=== PATIENT | female | born 1940 | race Caucasian/White ===

== ENCOUNTER 2016-11-16 15:44 | Outpatient (CLI) | payer MEDICARE, BC ==
--- NOTE | 2016-11-16 16:02 | RAD ---
PA AND LATERAL CHEST: 11/16/16 HISTORY: Cough. Heart size is within normal limits. There are atherosclerotic changes of the aorta. Lungs are clear of any infiltrative process. No significant bony findings. IMPRESSION: No active intrathoracic disease. POS: [facility]
== END 2016-11-16 15:45 | disposition home or self-care (01) ==
LOC: NAV RAD 15:44
DX: R05 Cough (principal)
CPT/HCPCS: 71020